=== PATIENT | male | born 1950 | race Caucasian/White ===

== ENCOUNTER 2023-08-30 18:00 | Outpatient (CLI) | payer MEDICARE, SELFPAY ==
[2023-08-30 19:42] LABS: Prostate Specific Ag Screen 2.3 ng/ml (0.0-4.0)
== END 2023-08-30 23:59 | disposition home or self-care (01) ==
LOC: LAB.DROPOF 08-31 08:02
PROVIDERS: PCP Family Medicine; Visit Provider Family Medicine
DX: Z12.5 Encounter for screening for malignant neoplasm of prostate (principal)
CPT/HCPCS: G0103